=== PATIENT | male | born 1970 | race Caucasian/White ===

== ENCOUNTER 2017-09-05 08:01 | Day surgery (SDC) | payer OTHER ==
[2017-09-05] VITALS (7 sets, daily range): BP systolic 100–144; BP diastolic 53–85; PULSE 49–83; RESP 18–20; TEMP 97.5–97.7; O2SAT 83–98
[~2017-09-05] VITALS: Ht 177.8 cm; Wt 84.1 kg
[~2017-09-05 08:01] MED LIST: NAPR500 PO
[2017-09-05] MEDS ORDERED: GELATIN 12 MM/7 MM FOAM ONE (08:02)
[2017-09-05] MEDS ORDERED: SODIUM CHLOR 0.9% 1000 ML IV SCH (08:30)
[2017-09-05] MEDS ORDERED: SODIUM CHLORIDE 2 ML FLUSH PRN IV FLUSH (08:30)
[2017-09-05] MEDS ORDERED: LIDOCAINE 1%/EPINEPHrine 1:100,000 SOLN 20 ML VIAL ONE (08:52)
[2017-09-05 08:57] LABS: AUTOMATED NEUTROPHIL # 1.2 TH/MM3 (1.8-7.7); BASOPHIL % 1.3 % (0.0-2.0); EOSINOPHIL # 0.1 TH/MM3 (0-0.4); EOSINOPHIL % 4.5 % (0.0-4.0); HEMATOCRIT 42.8 % (39.0-51.0); HEMO FLAGS DIFF FINAL; LYMPH % 38.6 % (9.0-44.0); LYMPHOCYTE # 1.3 TH/MM3 (1.0-4.8); MEAN CELL VOLUME 91.1 FL (80.0-100.0); MEAN CORPUSCULAR HEMOGLOBIN 31.3 PG (27.0-34.0); MEAN CORPUSCULAR HGB CONC 34.4 % (32.0-36.0); NEUT % 37.6 % (16.0-70.0); PLATELET COUNT 269 TH/MM3 (150-450); WHITE BLOOD COUNT 3.3 TH/MM3 (4.0-11.0)
[2017-09-05] MEDS ORDERED: SODIUM CHLORIDE 2 ML FLUSH BID IV FLUSH SCH (09:00)
[2017-09-05 09:06] LABS: APTT (PATIENT) 27.1 SEC (24.3-30.1)
[2017-09-05] MEDS ORDERED: MIDAZOLAM HCL 2 MG/2 ML VIAL ONE (09:19)
[2017-09-05] MEDS ORDERED: HYDROmorphone HCL 2 MG TAB PO PRN (10:30)
--- NOTE | 2017-09-05 10:31 | PD.RAD ---
Post CT Procedure Prog Note Pre Procedure Diagnosis: (1) Elevated liver enzymes Post Procedure Diagnosis: (1) Elevated liver enzymes Procedure Date: Sep 05, 2017 Supervising Radiologist: Devin Garcia Anesthesia: Conscious Sedation Plan of Activity Patient to Unit: [facility] Patient Condition: Good See PACS Report for procedural detail/treatment Devin Garcia MD Sep 05, 2017 10:31
[2017-09-05] MEDS ORDERED: PILL SPLITTER OTHER PRN (10:45)
--- NOTE | 2017-09-05 10:47 | RADRPT ---
EXAM DATE/TIME: 09/05/2017 10:06 [place] COMPARISON: No previous studies available for comparison. INDICATIONS : Elevated liver functions SEDATION TIME: 40 minutes BIOPSY SITE: Liver MEDICATION(S): 1.) 3 mg midazolam (Versed) IV 2.) 150 mcg fentanyl (Sublimaze) IV DEVICE(S): 1.) 15 gauge Stephenson blunt needle 2.) 18 gauge BioPince MEDICAL HISTORY : Cardiovascular disease. SURGICAL HISTORY : None. ENCOUNTER: Initial ACUITY: 1 day PAIN SCORE: 0/10 LOCATION: abdomen A total of three core specimen(s) were obtained and sent to the laboratory for pathologic evaluation. PROCEDURE: 1. CT guided liver biopsy. 2. Conscious sedation with continuous EKG and oximetry monitoring. 3. EKG and oximetry remained stable throughout the procedure. Prior to the procedure informed consent was obtained. Any appropriate prior imaging studies were rev iewed. Using automated exposure control and adjustment of the mA and/or kV according to patient size, radiat ion dose was kept as low as reasonably achievable to obtain optimal diagnostic quality images. DICOM format image data is available electronically for review and comparison. The site was prepped in a sterile fashion. Full sterile technique was used, including cap, mask, celi rile gloves and gown and a large sterile sheet. Hand hygiene and 2% chlorhexidine and/or betadine/al cohol prep was utilized per protocol for cutaneous antisepsis. The skin and subcutaneous tissues wer e infiltrated with local anesthetic solution. With CT guidance the previously identified target was localized. Biopsy was performed using the presc ribed needle as above. Adequate hemostasis was obtained with compression at the puncture site. Follow-up CT scan reveals no hemorrhage. The patient tolerated the procedure well and there were no complications. The patient was returned to the Radiology Outpatient Unit in stable condition. CONCLUSION: Uncomplicated CT guided biopsy. Devin Garcia MD on September 05, 2017 at 10:46 Board Certified Radiologist. This report was verified electronically.
== END 2017-09-05 14:28 | disposition home or self-care (01) ==
LOC: HRAD 08:01 → HRIP 08:05 → HRAD 14:28
DX: K73.9 Chronic hepatitis, unspecified (principal)
CPT/HCPCS: 47000; 77012; 85025; 85610; 85730; 88307; 88313; J2250; J3010